=== PATIENT | male | born 1990 | race Caucasian/White ===

== ENCOUNTER 2017-10-29 14:45 | Emergency (ER) | payer SELFPAY ==
[2017-10-29 15:01] VITALS: TEMP 98.6
--- NOTE | 2017-10-29 15:42 | ED.PDOC ---
History of Present Illness - General Chief Complaint: Problem Stated Complaint: testicular pain,blisters on feet Time Seen by Provider: 10/29/17 15:30 Source: patient Exam Limitations: no limitations Additional Information: PT C/O 2 DAY HX OF BLISTERS TO BOTTOM OF FEET AND TESTICULAR PAIN. - History of Present Illness Severity: moderate Improving Factors: nothing Worsening Factors: nothing Associated Symptoms: denies symptoms Allergies/Adverse Reactions: Allergies NO KNOWN ALLERGY Allergy (Verified 10/29/17 15:00) Home Medications: Ambulatory Orders Doxycycline (Monohydrate) [Doxycycline Monohydrate] 100 mg PO BID #20 cap Indomethacin 50 mg PO TID PRN #14 cap 10/29/17 Review of Systems - Review of Systems Constitutional: Denies: chills, fever EENTM: States: no symptoms reported Respiratory: States: no symptoms reported Cardiology: States: no symptoms reported Gastrointestinal/Abdominal: Denies: abdominal pain, nausea, vomiting Genitourinary: Denies: discharge, dysuria, frequency, hematuria Musculoskeletal: States: other - PAIN TO PLANTAR ASPECT OF FEET KHALIF. Denies: back pain, neck pain Skin: States: other - BLISTERS TO BOTTOM OF FEET. Neurological: States: no symptoms reported Endocrine: States: no symptoms reported Hematologic/Lymphatic: States: no symptoms reported Past Medical History (General) - Patient Medical History Hx Stroke: No Hx Congestive Heart Failure: No Hx Diabetes: No Hx Other - free text: ADHD, BIPOLAR, SCHIZOPHRENIA, - Vaccination History Hx Influenza Vaccination: No - Social History Hx Tobacco Use: Yes - Activities of Daily Living Additional ED Patient Information: CURRENTLY HOMELESS SLEEPING ON STREETS. Family Medical History - Family History Father Family History: Unknown Living Status: Unknown Physical Exam - Physical Exam General Appearance: Alert, No apparent distress Eye Exam: bilateral normal Ears, Nose, Throat: hearing grossly normal, normal ENT inspection Neck: full range of motion, supple Respiratory: lungs clear, normal breath sounds Cardiovascular/Chest: regular rate, rhythm, no murmur Peripheral Pulses: dorsalis pedis,right: 2+, dorsalis pedis,left: 2+, posterior tibialis,right: 2+, posterior tibialis,left: 2+ Gastrointestinal/Abdominal: non tender, soft, no organomegaly, other - G/U, NL CIRCUMCISED MALE, SCROTUM NL, TESTES NL, TENDER EPIDIDYMUS KHALIF, KHALIF TAENIA CRURIS. NO D/C, NO LESIONS. Back Exam: normal inspection, no vertebral tenderness Extremity: normal range of motion, other - DIFFUSE DERMATITIS LE'S, NVI, SCARRING AND SKIN GRAFTS TO LE'S, BLISTERS TO PLANTAR ASPECT, R OVER CALCANEOUS TENDER NO BACKGROUND, L PLANTAR ASPECT OVER DISTAL METACARPALS. 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 ADVISED NURSING WOULD NEED HELP MOST LIKELY WITH RX. WILL F/U AT [facility]. Departure - Departure Clinical Impression: Epididymitis Foot ulceration Qualifiers: Laterality: unspecified laterality Non-pressure ulcer stage: unspecified non- pressure ulcer stage Qualified Code(s): L97.509 - Non-pressure chronic ulcer of other part of unspecified foot with unspecified severity Time of Disposition: 17:08 Disposition: Discharge to Home or Self Care Condition: Good Departure Forms: ED Discharge - Pt. Copy, Patient Portal Self Enrollment Instructions: Epididymitis Prescriptions: Doxycycline (Monohydrate) [Doxycycline Monohydrate] 100 mg PO BID #20 cap Indomethacin 50 mg PO TID PRN #14 cap PRN Reason: Pain Home Medications: Ambulatory Orders Doxycycline (Monohydrate) [Doxycycline Monohydrate] 100 mg PO BID #20 cap Indomethacin 50 mg PO TID PRN #14 cap 10/29/17
[2017-10-29 18:21] VITALS: BP 137/89; O2SAT 94
== END 2017-10-29 18:25 | disposition home or self-care (01) ==
LOC: ER 14:45
DX: L97.509 Non-pressure chronic ulcer of other part of unspecified foot with unspecified severity (principal); N45.1 Epididymitis; Z59.0 Homelessness; F31.9 Bipolar disorder, unspecified; F20.9 Schizophrenia, unspecified

== ENCOUNTER 2017-10-30 08:35 | Emergency (ER) | payer SELFPAY ==
[2017-10-30 08:52] VITALS: BP 137/87; TEMP 97.8; O2SAT 97
[2017-10-30] MEDS ORDERED: ALUMINUM & MAGNESIUM HYDROXIDE 30 ML UD PO ONE (09:20)
[2017-10-30] MEDS ORDERED: FLUCONAZOLE 150 MG TAB PO ONE (09:20)
[2017-10-30] MEDS ORDERED: PROMETHAZINE HCL 25 MG TAB PO ONE (09:20)
[2017-10-30] MEDS ORDERED: FLUCONAZOLE 100 MG TAB ONE (09:21)
--- NOTE | 2017-10-30 09:23 | ED.PDOC ---
History of Present Illness - General Chief Complaint: General Stated Complaint: swelling in feet,vomiting Time Seen by Provider: 10/30/17 09:07 Source: patient Exam Limitations: no limitations - History of Present Illness Initial Comments: The patient is a 26-year-old male presenting back to the emergency room secondary to an episode of vomiting after he took his ciprofloxacin and Indocin yesterday evening. He has had long-term reflux issues. The patient was seen here yesterday and was diagnosed with blisters on his feet from poor fitting shoes as well as some epididymitis. He also has some mild intertrigo. There are no new issues today except that he threw up once with the medications. He appears to be doing fine currently. No new issues otherwise. No evidence of sepsis. Timing/Duration: unsure Severity: moderate Improving Factors: nothing Worsening Factors: nothing Associated Symptoms: nausea/vomiting Allergies/Adverse Reactions: Allergies NO KNOWN ALLERGY Allergy (Verified 10/29/17 15:00) Home Medications: Ambulatory Orders Doxycycline (Monohydrate) [Doxycycline Monohydrate] 100 mg PO BID #20 cap Indomethacin 50 mg PO TID PRN #14 cap 10/29/17 Promethazine HCl 25 mg PO Q6H PRN #10 tab 10/30/17 Review of Systems - Review of Systems Constitutional: States: no symptoms reported EENTM: States: no symptoms reported Respiratory: States: no symptoms reported Cardiology: States: no symptoms reported Gastrointestinal/Abdominal: States: nausea, vomiting Genitourinary: States: no symptoms reported Musculoskeletal: States: no symptoms reported Skin: States: see HPI Neurological: States: anxiety Endocrine: States: no symptoms reported All other Systems: No Change from Baseline Past Medical History (General) - Patient Medical History Hx Stroke: No Hx Congestive Heart Failure: No Hx Diabetes: No - Vaccination History Hx Influenza Vaccination: No - Social History Hx Tobacco Use: Yes Family Medical History - Family History Father Family History: Unknown Living Status: Unknown Physical Exam - Physical Exam General Appearance: Alert, Anxious, No apparent distress Eye Exam: bilateral normal Ears, Nose, Throat: hearing grossly normal, normal pharynx Neck: supple Respiratory: lungs clear, normal breath sounds, no respiratory distress, no accessory muscle use Cardiovascular/Chest: normal peripheral pulses, no edema, other - regular rate Peripheral Pulses: radial,right: 2+, radial,left: 2+, dorsalis pedis,right: 2+, dorsalis pedis,left: 2+ Gastrointestinal/Abdominal: non tender, soft Rectal Exam: other - the patient does have significant perineal intertrigo. 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 He has old grafts to bilateral lower extremities and does have significant dry skin. He does have some blisters to his feet due to not wearing socks with his shoes andnot even using laces with issues. Comments: Vital Signs - 24 hr 10/30/17 08:47 Temperature 97.8 F Pulse Rate [ 77 Left Brachial] Respiratory 16 Rate Blood Pressure 137/87 [Left Arm] O2 Sat by Pulse 97 Oximetry Progress - Progress Progress: 10/30/17 09:25 the patient is a 26-year-old male presenting after an episode of nausea and vomiting likely related to taking his medications on an empty stomach. He does need to try and take his medications with food. The patient does also have some significant inguinal intertrigo and was given a dose of Diflucan here. He can use some baby powder in this area as well as in his shoes to prevent sweating and further rash and blister formation. Additionally he can grain picker some [id number] antifungal spray for jock itch and use this for the jock itch. He does need to use socks with his shoes. This will help reduce blister formation and actually lacing up his shoes may help reduce friction on the bottom of the feet and prevent further blister formation. He' ll be written for Phenergan for as needed use to control any additional nausea and vomiting. He needs to keep himself hydrated to prevent constipation. He can use topical lotion on his lower extremities twice daily to prevent itching from the dry skin. the patient needs to complete his course of antibiotics for the epididymitis as this may take the full course to clear it. Departure - Departure Clinical Impression: Intertrigo Vomiting Qualifiers: Vomiting type: unspecified Vomiting Intractability: non-intractable Nausea presence: unspecified Qualified Code(s): R11.10 - Vomiting, unspecified Disposition: Discharge to Home or Self Care Condition: Fair Departure Forms: ED Discharge - Pt. Copy, Patient Portal Self Enrollment Diet: bland diet Activity: increase activity as tolerated Prescriptions: Promethazine HCl 25 mg PO Q6H PRN #10 tab PRN Reason: Vomiting Home Medications: Ambulatory Orders Doxycycline (Monohydrate) [Doxycycline Monohydrate] 100 mg PO BID #20 cap Indomethacin 50 mg PO TID PRN #14 cap 10/29/17 Promethazine HCl 25 mg PO Q6H PRN #10 tab 10/30/17 Additional Instructions: the patient is a 26-year-old male presenting after an episode of nausea and vomiting likely related to taking his medications on an empty stomach. He does need to try and take his medications with food. The patient does also have some significant inguinal intertrigo and was given a dose of Diflucan here. He can use some baby powder in this area as well as in his shoes to prevent sweating and further rash and blister formation. Additionally he can grain picker some [id number] antifungal spray for jock itch and use this for the jock itch. He does need to use socks with his shoes. This will help reduce blister formation and actually lacing up his shoes may help reduce friction on the bottom of the feet and prevent further blister formation. He' ll be written for Phenergan for as needed use to control any additional nausea and vomiting. He needs to keep himself hydrated to prevent constipation. He can use topical lotion on his lower extremities twice daily to prevent itching from the dry skin. the patient needs to complete his course of antibiotics for the epididymitis as this may take the full course to clear it.
== END 2017-10-30 09:44 | disposition home or self-care (01) ==
LOC: ER 08:35
DX: L30.4 Erythema intertrigo (principal); R11.10 Vomiting, unspecified

== ENCOUNTER 2018-04-10 06:14 | Emergency (ER) | payer OTHER ==
--- NOTE | 2018-04-10 06:34 | ED.PDOC ---
History of Present Illness - General Chief Complaint: Problem Stated Complaint: itching in groin Time Seen by Provider: 04/10/18 06:33 Source: patient Exam Limitations: no limitations - History of Present Illness Initial Comments: Robin Garcia 27 y/o male stated that he has skin rash both groin for the last several weeks and also has history of asthma.It had been itching at bedtime. Timing/Duration: 1 week Severity: moderate Improving Factors: nothing Worsening Factors: nothing Associated Symptoms: other - see hpi Allergies/Adverse Reactions: Allergies NO KNOWN ALLERGY Allergy (Verified 04/10/18 06:33) Home Medications: Ambulatory Orders Doxycycline (Monohydrate) [Doxycycline Monohydrate] 100 mg PO BID #20 cap Indomethacin 50 mg PO TID PRN #14 cap 10/29/17 Promethazine HCl 25 mg PO Q6H PRN #10 tab 10/30/17 Prednisone 10 mg PO BID #14 tab 04/10/18 Terbinafine HCl [Lamisil] 250 mg PO DAILY #14 tab 04/10/18 Triamcinolone 0.5% Cream [Kenalog 0.5% Cream] 1 applic TOP BID 14 Days #90 appli 04/10/18 Review of Systems - Review of Systems Constitutional: States: no symptoms reported EENTM: States: no symptoms reported Respiratory: States: no symptoms reported Cardiology: States: no symptoms reported Gastrointestinal/Abdominal: States: no symptoms reported Genitourinary: States: no symptoms reported Musculoskeletal: States: no symptoms reported Skin: States: see HPI Past Medical History (General) - Patient Medical History Hx Seizures: No Hx Stroke: No Hx Dementia: No Hx Asthma: Yes Hx of COPD: No Hx Cardiac Disorders: No Hx Congestive Heart Failure: No Hx Pacemaker: No Hx Hypertension: No Hx Thyroid Disease: No Hx Diabetes: No Hx Gastroesophageal Reflux: No Hx Renal Disease: No Hx Cancer: No Hx of HIV: No Hx Hepatitis C: No Hx MRSA: No Surgical History: no surgical history - Vaccination History Hx Tetanus, Diphtheria Vaccination: Yes Hx Influenza Vaccination: Yes - Social History Hx Tobacco Use: Yes Hx Alcohol Use: Yes - occasional Hx Substance Use: No Hx Depression: Yes Family Medical History - Family History Father Family History: Unknown Living Status: Unknown Physical Exam - Physical Exam General Appearance: Alert, Comfortable, No apparent distress Eye Exam: bilateral normal Ears, Nose, Throat: hearing grossly normal, normal ENT inspection Neck: non-tender, full range of motion, supple Respiratory: lungs clear, normal breath sounds, no respiratory distress Cardiovascular/Chest: normal peripheral pulses, regular rate, rhythm, no murmur Peripheral Pulses: radial,right: 2+, radial,left: 2+ Gastrointestinal/Abdominal: non tender, soft, no organomegaly Back Exam: no CVA tenderness, no vertebral tenderness Extremity: no pedal edema, no calf tenderness Neurologic: alert, oriented x 3 Skin Exam: normal color, warm/dry, rash - both groin Progress - Progress Progress: 04/10/18 06:46 Vital Signs - 8 hr 04/10/18 06:29 Temperature 97.8 F Pulse Rate [ 97 H monitor] Respiratory 18 Rate Blood Pressure 129/89 [Left Arm] O2 Sat by Pulse 96 Oximetry Departure - Departure Clinical Impression: Jock itch Time of Disposition: 06:47 Disposition: Discharge to Home or Self Care Condition: Fair Departure Forms: ED Discharge - Pt. Copy, Patient Portal Self Enrollment Instructions: Wilman Itch (DC), Ringworm Prescriptions: Prednisone 10 mg PO BID #14 tab Terbinafine HCl [Lamisil] 250 mg PO DAILY #14 tab Triamcinolone 0.5% Cream [Kenalog 0.5% Cream] 1 applic TOP BID 14 Days #90 appli Home Medications: Ambulatory Orders Doxycycline (Monohydrate) [Doxycycline Monohydrate] 100 mg PO BID #20 cap Indomethacin 50 mg PO TID PRN #14 cap 10/29/17 Promethazine HCl 25 mg PO Q6H PRN #10 tab 10/30/17 Prednisone 10 mg PO BID #14 tab 04/10/18 Terbinafine HCl [Lamisil] 250 mg PO DAILY #14 tab 04/10/18 Triamcinolone 0.5% Cream [Kenalog 0.5% Cream] 1 applic TOP BID 14 Days #90 appli 04/10/18 Additional Instructions: Need to cleanse area with soap and water am/pm
[2018-04-10 06:38] VITALS: BP 129/89; TEMP 97.8; O2SAT 96
== END 2018-04-10 07:01 | disposition home or self-care (01) ==
LOC: ER 06:14
DX: B35.6 Tinea cruris (principal); J45.909 Unspecified asthma, uncomplicated; F32.9 Major depressive disorder, single episode, unspecified; Z87.891 Personal history of nicotine dependence

== ENCOUNTER 2018-04-10 15:27 | Inpatient (IN) | payer OTHER ==
[2018-04-10] MEDS ORDERED: ONDANSETRON ODT 8 MG TAB SL ONE (16:28)
[2018-04-10] MEDS ORDERED: FAMOTIDINE 20 MG TAB PO ONE (16:28)
[2018-04-10] MEDS ORDERED: SODIUM CHLORIDE 0.9% 1000ML 1,000 ML IVS ONE ×2 (16:28→17:57)
[2018-04-10] MEDS ORDERED: MAGNESIUM HYDROXIDE 30 ML UD PO ONE (17:20)
--- NOTE | 2018-04-10 17:48 | RAD ---
EXAM DESCRIPTION: Abdomen Series CLINICAL HISTORY: 27 years Male, n/v COMPARISON: None. FINDINGS: The cardiomediastinal silhouette is unremarkable. There is no airspace consolidation or pleural effusion. There is no free subdiaphragmatic gas or intra-abdominal air fluid level. There is a moderate amount of stool and gas scattered throughout the colon, but the bowel gas pattern is nonobstructive. No suspicious intra-abdominal calcification or mass is identified, and the bones are unremarkable. IMPRESSION: No acute findings. Electronically signed by: Austin Jimenez MD 04/10/2018 5:47 PM CDT
[2018-04-10] MEDS ORDERED: cefTRIAXone SODIUM 1 GM in SODIUM CHL 0.9% 50ML MIN-BAG+ 50 ML IVPB ONE (18:13)
--- NOTE | 2018-04-10 18:23 | ED.PDOC ---
History of Present Illness - General Chief Complaint: GI Problem Stated Complaint: vomiting Time Seen by Provider: 04/10/18 16:25 Source: patient Exam Limitations: no limitations - History of Present Illness Initial Comments: the patient is a 27-year-old homeless patient with a history of bipolar disorder and asthma as well as a distant history of ortiz and chronic pain presenting to the emergency room secondary to a couple of episodes of nausea and vomiting. He does have a history of chronic constipation. The patient has had significant heat exposure recently. He denies any blood or bile in the vomitus. He does not know of any liver problems and is not known to be a diabetic. He does have increased body aches. He has a couple small ulcers on bilateral heels.he was seen earlier today for jock itch essentially.he reports his last bowel movement has been for 5 days ago. Timing/Duration: 4-6 hours Severity: moderate Improving Factors: nothing Worsening Factors: eating Associated Symptoms: loss of appetite, malaise, nausea/vomiting Allergies/Adverse Reactions: Allergies NO KNOWN ALLERGY Allergy (Verified 04/10/18 16:20) Home Medications: Ambulatory Orders Doxycycline (Monohydrate) [Doxycycline Monohydrate] 100 mg PO BID #20 cap Indomethacin 50 mg PO TID PRN #14 cap 10/29/17 Promethazine HCl 25 mg PO Q6H PRN #10 tab 10/30/17 Prednisone 10 mg PO BID #14 tab 04/10/18 Terbinafine HCl [Lamisil] 250 mg PO DAILY #14 tab 04/10/18 Triamcinolone 0.5% Cream [Kenalog 0.5% Cream] 1 applic TOP BID 14 Days #90 appli 04/10/18 Review of Systems - Review of Systems Constitutional: States: malaise EENTM: States: no symptoms reported Respiratory: States: no symptoms reported Cardiology: States: no symptoms reported Gastrointestinal/Abdominal: States: constipation, nausea, vomiting. Denies: diarrhea Genitourinary: States: see HPI Musculoskeletal: States: other - generalized body aches Skin: States: see HPI Neurological: States: see HPI Endocrine: States: no symptoms reported All other Systems: No Change from Baseline Past Medical History (General) - Patient Medical History Hx Seizures: No Hx Stroke: No Hx Dementia: No Hx Asthma: Yes Hx of COPD: No Hx Cardiac Disorders: No Hx Congestive Heart Failure: No Hx Pacemaker: No Hx Hypertension: No Hx Thyroid Disease: No Hx Diabetes: No Hx Gastroesophageal Reflux: No Hx Renal Disease: No Hx Cancer: No Hx of HIV: No Hx Hepatitis C: No Hx MRSA: No Surgical History: other - Vaccination History Hx Tetanus, Diphtheria Vaccination: Yes Hx Influenza Vaccination: Yes - Social History Hx Tobacco Use: Yes Hx Alcohol Use: Yes - occasional Hx Substance Use: No Hx Depression: Yes Family Medical History - Family History Father Family History: Unknown Living Status: Unknown Physical Exam - Physical Exam General Appearance: Alert, No apparent distress Eye Exam: bilateral normal Ears, Nose, Throat: hearing grossly normal, normal ENT inspection, normal pharynx Neck: non-tender, full range of motion, supple Respiratory: lungs clear, normal breath sounds, no respiratory distress, no accessory muscle use Cardiovascular/Chest: normal peripheral pulses, regular rate, rhythm, no edema Peripheral Pulses: radial,right: 2+, radial,left: 2+, dorsalis pedis,right: 2+, dorsalis pedis,left: 2+ Gastrointestinal/Abdominal: non tender, soft Rectal Exam: deferred Back Exam: no vertebral tenderness Extremity: normal range of motion, no pedal edema, no calf tenderness, normal capillary refill 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 He does have small ulcers to bilateral heels. He does have several blisters otherwise over his feet that do not appear infected. Comments: Vital Signs - 24 hr 04/10/18 16:05 Temperature 98.5 F Pulse Rate [ 89 pulse ox] Respiratory 20 Rate Blood Pressure 133/83 [Left Arm] O2 Sat by Pulse 98 Oximetry Progress - Progress Progress: 04/10/18 18:24 the patient is a 27-year-old male presenting to emergency room secondary to heat exhaustion and mild rhabdomyolysis presenting with body aches and weakness as well as nausea and vomiting. Constipation is also likely contributing to nausea and vomiting. He has received a liter of IV fluids and is starting his second. He has received a dose of milk of magnesia. Laboratory work does indicate some acute renal failure as well as some liver irritation likely related to dehydration and rhabdomyolysis. He does have a mildly elevated glucose but does take several psychiatric medications so he may be on the verge of developing some insulin resistance. Admit for above issues. Additionally the patient had does have a couple of ulcers to the posterior heels that will need to be dressed. He is receiving a dose of Rocephin as an antibiotic at this weight as he would likely throw up an oral antibiotic at this time. He has received a dose of GI medications as well. - Results/Orders Results/Orders: acute abdominal series shows moderate constipation. Laboratory Results - last 24 hr 04/10/18 04/10/18 16:44 16:44 WBC 15.0 H RBC 4.91 Hgb 15.4 Hct 45.7 MCV 93.0 MCH 31.3 H MCHC 33.7 RDW 14.6 H Plt Count 224 MPV 8.6 Absolute Neuts (auto) 12.10 H Absolute Lymphs (auto) 1.40 Absolute Monos (auto) 1.30 H Absolute Eos (auto) 0.00 Absolute Basos (auto) 0.10 Neutrophils % 80.9 H Lymphocytes % 9.6 L Monocytes % 9.0 Eosinophils % 0.0 L Basophils % 0.5 Sodium 142 Potassium 4.8 Chloride 101 Carbon Dioxide 28 Anion Gap 17.8 BUN 29 H Creatinine 1.41 H BUN/Creatinine Ratio 20.6 H Random Glucose 129 H Serum Osmolality 290.6 Calcium 10.4 H Total Bilirubin 2.5 H* AST 77 H ALT 33 Alkaline Phosphatase 71 Creatine Kinase 2782 H* CK-MB (CK-2) 13.3 H* CK-MB (CK-2) % 0.48 Troponin I < 0.02 Serum Total Protein 9.7 H Albumin 5.8 H Globulin 3.9 H Albumin/Globulin Ratio 1.5 Amylase 49 Lipase 15 L Departure - Departure Clinical Impression: Nausea and vomiting Qualifiers: Vomiting type: unspecified Vomiting Intractability: non-intractable Qualified Code(s): R11.2 - Nausea with vomiting, unspecified Constipation Qualifiers: Constipation type: unspecified constipation type Qualified Code(s): K59.00 - Constipation, unspecified Rhabdomyolysis Qualifiers: Rhabdomyolysis type: non-traumatic Qualified Code(s): M62.82 - Rhabdomyolysis Pressure ulcer Qualifiers: Pressure injury location: foot, unspecified location Pressure injury stage: stage 2 Disposition: Admit Patient Home Medications: Ambulatory Orders Doxycycline (Monohydrate) [Doxycycline Monohydrate] 100 mg PO BID #20 cap Indomethacin 50 mg PO TID PRN #14 cap 10/29/17 Promethazine HCl 25 mg PO Q6H PRN #10 tab 10/30/17 Prednisone 10 mg PO BID #14 tab 04/10/18 Terbinafine HCl [Lamisil] 250 mg PO DAILY #14 tab 04/10/18 Triamcinolone 0.5% Cream [Kenalog 0.5% Cream] 1 applic TOP BID 14 Days #90 appli 04/10/18 Decision To Admit - Decistion To Admit Decision to Admit Reason: Medical Nature Decision to Admit Date: 04/10/18 Decision to Admit Time: 18:27
[2018-04-10] MEDS ORDERED: SODIUM CHL 0.9% 50ML MIN-BAG+ 50 ML IVPB ONE (18:40)
[2018-04-10] MEDS ORDERED: cefTRIAXone SODIUM 1 GM VIAL ONE (18:40)
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
[2018-04-10] MEDS ORDERED: SODIUM CHLORIDE 0.9% (FLUSH) 10 ML SYG IV PRN (20:30)
[2018-04-10] MEDS ORDERED: MAGNESIUM HYDROXIDE 30 ML UD PO PRN (20:30)
[2018-04-10] MEDS ORDERED: ONDANSETRON INJ 4 MG/2 ML VIAL IV PRN (20:30)
[2018-04-10] MEDS ORDERED: IV SET AND CAP CHANGE INJ INJ SCH (20:30)
[2018-04-10] MEDS ORDERED: LACTATED RINGERS 1,000 ML IVS ONE (20:34)
[2018-04-10] MEDS ORDERED: BISACODYL SUPPOSITORY 10 MG PR ONE (20:36)
[2018-04-10] MEDS ORDERED: POLYETHYLENE GLYCOL 3350 17 GM PCKT PO ONE (20:39)
[2018-04-10] MEDS ORDERED: SODIUM CHLORIDE 0.9% (FLUSH) 10 ML SYG IV SCH (21:00)
[2018-04-10] MEDS: DEX 5% W/NACL 0.45% 1000ML 1,000 ML IVS PRN (22:38)
[2018-04-11] MEDS: DEX 5% W/NACL 0.45% 1000ML 1,000 ML IVS PRN ×3 (06:30→20:02)
[2018-04-11] MEDS ORDERED: cefTRIAXone SODIUM 1 GM VIAL ONE (07:14)
[2018-04-11] MEDS ORDERED: SODIUM CHL 0.9% 50ML MIN-BAG+ 50 ML IVPB ONE (07:15)
[2018-04-11] MEDS: cefTRIAXone SODIUM 1 GM in SODIUM CHL 0.9% 50ML MIN-BAG+ 50 ML IVPB SCH (08:17)
[2018-04-11] MEDS: diphenhydrAMINE HCL 25 MG CAP PO PRN ×2 (12:33→20:02)
[2018-04-12] MEDS: DEX 5% W/NACL 0.45% 1000ML 1,000 ML IVS PRN ×2 (02:38→10:53)
[2018-04-12] MEDS ORDERED: cefTRIAXone SODIUM 1 GM VIAL ONE (08:54)
[2018-04-12] MEDS ORDERED: SODIUM CHL 0.9% 50ML MIN-BAG+ 50 ML IVPB ONE (08:54)
[2018-04-12] MEDS: cefTRIAXone SODIUM 1 GM in SODIUM CHL 0.9% 50ML MIN-BAG+ 50 ML IVPB SCH (08:57)
[2018-04-12] MEDS ORDERED: GUANFACINE HCL PO SCH (14:45)
[2018-04-12] MEDS ORDERED: METHYLPHENIDATE HCL 10 MG PO SCH (14:45)
[2018-04-12 14:55] VITALS: BP 137/86; TEMP 98.4; O2SAT 96
[2018-04-12] MEDS ORDERED: PARoxetine HCL 20 MG TAB PO SCH (15:00)
[2018-04-12] MEDS ORDERED: ARIPiprazole 5 MG TAB PO SCH (15:00)
[2018-04-12] MEDS ORDERED: DIVALPROEX SODIUM ER 250 MG TAB PO SCH ×2 (15:00→21:00)
[2018-04-12] MEDS ORDERED: QUEtiapine FUMARATE 100 MG TAB PO SCH (15:00)
[2018-04-12] MEDS ORDERED: cloNIDine HCL 0.1 MG TAB PO SCH (15:00)
[2018-04-12] MEDS ORDERED: traZODone HCL 100 MG TAB PO SCH (21:00)
[2018-04-12] MEDS ORDERED: diazePAM 5 MG TAB PO SCH (21:00)
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
== END 2018-04-12 16:03 | disposition home or self-care (01) | DRG 683 ==
LOC: ER 15:27 → MS 19:56 → OBSVTOIN 19:56
PROVIDERS: ADMIT Nurse Practitioner Family; ATTEND Nurse Practitioner Family
DX: N17.9 Acute kidney failure, unspecified (principal); M62.82 Rhabdomyolysis; E86.0 Dehydration; K59.09 Other constipation; F31.9 Bipolar disorder, unspecified; F90.9 Attention-deficit hyperactivity disorder, unspecified type; F91.3 Oppositional defiant disorder; B35.6 Tinea cruris; L89.612 Pressure ulcer of right heel, stage 2; L89.622 Pressure ulcer of left heel, stage 2; T67.5XXA Heat exhaustion, unspecified, initial encounter; X30.XXXA Exposure to excessive natural heat, initial encounter; Y92.9 Unspecified place or not applicable; G89.29 Other chronic pain; J45.909 Unspecified asthma, uncomplicated; Z59.0 Homelessness; Z79.52 Long term (current) use of systemic steroids; Z79.899 Other long term (current) drug therapy